=== PATIENT | male | born 1945 | race Caucasian/White ===

== ENCOUNTER → 2016-10-10 | Outpatient (REF) ==
[~2016-10-10] MED LIST: ASPI325T6 PO; ASPIRIN E.C. 8181 MG PO; ATIVAN 0.50.5 MG/TAB PO; ATIVAN 1MG T1 MG/TAB PO; IMDUR 30MG30 MG/TAB PO; LIPITOR 10MG10 MG PO; PLAVIX 75MG TAB75 MG PO; PROTONIX 40MG T40 MG PO; XANAX 0.5MG0.5 MG PO; ZANTAC 150MG T150 MG PO; ZOLOFT 100MG100 MG PO
== END ==
LOC: ZLAB.WCH 18:35
DX: Z01.89 Encounter for other specified special examinations (principal)
CPT/HCPCS: G0103

== ENCOUNTER → 2016-10-31 | Outpatient (REF) | LOC: ZLAB.WCH 14:46 | DX: Z01.89 Encounter for other specified special examinations (principal) | CPT/HCPCS: G0103 ==

== ENCOUNTER → 2016-12-04 | Outpatient (CLI) | payer MEDICARE, BC ==
[2016-12-04 18:07] LABS: HEMATOCRIT 37.7 % (42.0-52.0); MEAN CELL VOLUME 96 fl (80.0-100.0); MEAN CORPUSCULAR HEMOGLOBIN 33 pg (27.0-31.0); MEAN CORPUSCULAR HGB CONC 35 g/dl (33.0-37.0); MEAN PLATELET VOLUME 9.5 fl (7.4-10.4); PLATELET COUNT 174 K/mm3 (130-400); RED BLOOD COUNT 3.93 M/mm3 (4.20-5.60); REDCELL DISTRIBUTION WIDTH-CV 13.6 % (11.5-14.5); WHITE BLOOD COUNT 5.6 K/mm3 (4.8-10.8)
[2016-12-04 18:16] LABS: CALCIUM 9.8 mg/dL (8.4-10.2); CREATININE, serum 1.37 mg/dL (0.66-1.25); POTASSIUM 4.4 mmol/L (3.4-5.0)
== END ==
LOC: COL.RAD 17:26
PROVIDERS: Internal Medicine Interventional Cardiology
DX: R06.02 Shortness of breath (principal)

== ENCOUNTER → 2017-11-13 | Outpatient (REF) | LOC: ZLAB.WCH 15:54 | DX: Z01.89 Encounter for other specified special examinations (principal) | CPT/HCPCS: G0103 ==

== ENCOUNTER → 2018-01-17 | Outpatient (CLI) | payer MEDICARE, BC ==
[~2018-01-17] MED LIST changes: +ANORO IH; +LOPRESSOR 225 MG/TAB PO
== END ==
LOC: COL.PUL 07:37
DX: J44.9 Chronic obstructive pulmonary disease, unspecified (principal); Z87.891 Personal history of nicotine dependence

== ENCOUNTER → 2018-01-21 | Outpatient (REF) ==
[~2018-01-21] MED LIST changes: +VENTOLIN0.09 MG IH
== END ==
LOC: COL.CARD 15:02
DX: Z01.818 Encounter for other preprocedural examination (principal)

== ENCOUNTER → 2018-01-21 | Outpatient (CLI) | payer MEDICARE, BC ==
[~2018-01-21] VITALS: Ht 175.3 cm; Wt 92.0 kg
[2018-01-21 13:29] VITALS: BP 163/90; PULSE 66
[2018-01-21 14:45] VITALS: BP 90/63; PULSE 64
[2018-01-21 15:00] VITALS: BP 91/62; PULSE 60
[2018-01-21 15:15] VITALS: BP 112/70; PULSE 59
[2018-01-21 15:30] VITALS: BP 124/75; PULSE 60
== END ==
LOC: COL.RAD 13:10
DX: M48.061 Spinal stenosis, lumbar region without neurogenic claudication (principal); M47.817 Spondylosis without myelopathy or radiculopathy, lumbosacral region; M99.73 Connective tissue and disc stenosis of intervertebral foramina of lumbar region; Z95.1 Presence of aortocoronary bypass graft; Z98.890 Other specified postprocedural states; Z85.528 Personal history of other malignant neoplasm of kidney
CPT/HCPCS: G9654; J2704; J7120

== ENCOUNTER → 2018-11-17 | Outpatient (REF) | LOC: ZLAB.WCH 16:03 | DX: Z01.89 Encounter for other specified special examinations (principal) | CPT/HCPCS: G0103 ==

== ENCOUNTER 2019-10-06 14:41 | Inpatient (IN) | payer MEDICARE, BC ==
[~2019-10-06] VITALS: Ht 175.3 cm; Wt 84.5 kg
[~2019-10-06 14:41] MED LIST changes: -LOPRESSOR 225 MG/TAB PO; +TOPROL XL 25MG25 MG PO
[2020-01-18] VITALS (9 sets, daily range): BP systolic 120–159; BP diastolic 64–84; PULSE 65–78; TEMP 97.4–98.4
[2020-01-18] MEDS ORDERED: NATURAL VITAM1000 MG PO (00:52)
[2020-01-18] MEDS ORDERED: COLACE 100100 MG/CAP PO (00:53)
[2020-01-18] MEDS ORDERED: PEPCID40 MG PO (00:54)
[2020-01-18] MEDS ORDERED: ALBUTEROL SULFAT3 M3 IH (00:56)
[2020-01-18] MEDS ORDERED: IRON TABLETS325 MG PO (00:57)
--- NOTE | 2020-01-18 05:45 | NUR ---
ARRIVED PER W/C FOR SURGERY THIS AM. LAST MEAL 1800. TOOK AM MEDS AT 0400.
[2020-01-18] MEDS ORDERED: FOLIC ACID 11 MG/TA1 PO (06:13)
[2020-01-18 06:58] LABS: HEMATOCRIT 39.7 % (42.0-52.0); HEMOGLOBIN 13.3 g/dl (13.5-18.0); MEAN CELL VOLUME 97 fl (80.0-100.0); MEAN CORPUSCULAR HEMOGLOBIN 32 pg (27.0-31.0); MEAN CORPUSCULAR HGB CONC 34 g/dl (33.0-37.0); MEAN PLATELET VOLUME 9.6 fl (7.4-10.4); PLATELET COUNT 185 K/mm3 (130-400); RED BLOOD COUNT 4.11 M/mm3 (4.20-5.60); REDCELL DISTRIBUTION WIDTH-CV 12.4 % (11.5-14.5)
[2020-01-18 07:36] LABS: CALCIUM 9.7 mg/dL (8.4-10.2); CREATININE, serum 1.36 (0.66-1.25); POTASSIUM 4.3 mmol/L (3.4-5.0)
--- NOTE | 2020-01-18 09:00 | NUR ---
AT BEDSIDE EXPLAINING OR DELAY. PATIENT ALLOWED CLEARS TILL NOON PER . PATIENT AND IN ROOM.
[2020-01-18] MEDS ORDERED: TOPROL XL 25MG25 MG PO (09:58)
--- NOTE | 2020-01-18 13:45 | NUR ---
SW met with the patient to discuss discharge plan. The patient lives in [place] with his , Jermaine ([id number]#[phone]). He reports needing some assistance with washing his back when bathing and has a walker and cane. He states that his helps him with bathing. The patient's PCP is Dr. John Barton and he receives his medications at [facility]. He reports no difficulties obtaining his meds. The patient's advanced directives are in EMR. His DPOA-HC is his . The patient plans to return home with his upon discharge. He is to have total hip surgery later today. SW to continue to follow.
--- NOTE | 2020-01-18 20:45 | NUR ---
At time of assessment, patient is awake in bed. He is alert and oriented and is not currently feeling pain. His right hip is not red or edematous and the dressing is CDI. Heart sounds are normal/regular, lungs are clear. Abdomen is distended and firm but patient states he had bowel movement this afternoon. He is on post-op vitals and fluids at 100 at this time. Will continue to monitor.
[2020-01-19 04:57] VITALS: BP 99/62; PULSE 65; TEMP 98.1
--- NOTE | 2020-01-19 07:04 | NUR ---
Sitting up in bed with eyes open. Denies pain at this time. Is looking forward to working with PT at this time. Denies further needs presently.
[2020-01-19 07:31] VITALS: BP 109/68; PULSE 69; TEMP 97.7
--- NOTE | 2020-01-19 08:20 | NUR ---
Rating pain 6-7/10 in right hip and requests pain medication. Roxicodone administered as prescribed.
[2020-01-19 11:19] VITALS: BP 122/66; PULSE 72; TEMP 97.9
--- NOTE | 2020-01-19 11:52 | NUR ---
Sitting up in chair with eyes open. Rating pain 8/10 in right hip and would like pain medication. Administered [place] as prescribed. Patient denies further needs at this time.
--- NOTE | 2020-01-19 13:06 | NUR ---
Sitting up in chair with eyes closed. Opens eyes when start talking. Patient's is in room at this time. Patient rating pain 1/10. Denies further needs.
--- NOTE | 2020-01-19 14:43 | NUR ---
Patient says his stomach does not feel well. Zofran administered as prescribed. Patient says that he keeps falling asleep. Asked patient if he would like to put his oxygen back on beings he is tired and patient agrees. Oxygen reapplied at 3L/NC. Patient denies further needs.
[2020-01-19 14:48] VITALS: BP 95/63; PULSE 79; TEMP 98.1
[2020-01-19 15:30] VITALS: BP 112/65; PULSE 79; TEMP 97.5
--- NOTE | 2020-01-19 15:51 | NUR ---
John, RN, speaks with the patient as patient requested to speak with a nurse. John explains that patient continued to say that he did not feel well, felt a little dizzy, hot, and sweaty. John obtained vital signs and explained they were all in normal limits. John asked the patient if he was a regular alcohol user and the patient says that he drinks about 10 ounces of whiskey per night. John administers Ativan at this time as patient also has history of anxiety. Patient denies further needs.
--- NOTE | 2020-01-19 16:32 | NUR ---
Patient lying in bed with eyes closed. Respirations even and unlabored. No signs or symptoms of discomfort noted at this time.
--- NOTE | 2020-01-19 17:30 | NUR ---
Patient explains that he is feeling better. Patient says that he has history of anxiety and this is similar to past episodes that he has had. Patient denies any more nausea. Denies further needs at this time.
--- NOTE | 2020-01-19 18:06 | NUR ---
Rating pain in right hip 5/10 and requests pain medication. Administered Tramadol as prescribed. Patient denies further needs at this time.
[2020-01-19 19:30] VITALS: BP 123/69; PULSE 79; TEMP 98
--- NOTE | 2020-01-19 21:45 | NUR ---
Pt. sitting up in bed at this time. Pt. is A&OX3, assessment complete. INT to lt. hand patent. Pt. reports pain at an 8 on pain scale at this time. Gave pain meds. Dressing to rt. hip CDI. Pt. assisted to bathroom with 1 assist and then to chair. Pt. repositioned in chair for comfort. Pt. denies further needs, call light within reach.
[2020-01-20] VITALS: BP 99/53; PULSE 91; TEMP 98.1
[2020-01-20 04:00] VITALS: BP 129/58; PULSE 85; TEMP 98.4
[2020-01-20] MEDS ORDERED: NORCO 325 MG-7.1 TAB PO (06:37)
[2020-01-20] MEDS ORDERED: ROXICODONE 55 MG/TAB PO (06:38)
--- NOTE | 2020-01-20 07:21 | NUR ---
Sitting up in bed with eyes open. Denies pain at this time. Aquacell to right hip CDI. Patient denies further needs at this time.
--- NOTE | 2020-01-20 08:32 | NUR ---
Assisted patient into recliner chair. Patient confirms that he already has a prescription for Xarelto at home. Discussed with the patient that we will try to get him discharged this afternoon. Patient verbalizes understanding and denies further needs at this time.
[2020-01-20 09:10] VITALS: BP 104/65; PULSE 84; TEMP 97.8
--- NOTE | 2020-01-20 10:07 | NUR ---
Sitting in recliner with eyes closed. Opens eyes when enter room. Denies pain at this time. Voices no further needs at this time.
--- NOTE | 2020-01-20 11:18 | NUR ---
Sitting up in chair with eyes closed. Respirations even and unlabored. No signs or symptoms of discomfort noted at this time.
--- NOTE | 2020-01-20 11:53 | NUR ---
First visit from the minister assistant. No needs right now.
--- NOTE | 2020-01-20 12:30 | NUR ---
Discharge instructions reviewed with patient and his . Questions answered. Patient signs discharge paperwork. Discharge packet provided to the patient. Explain that PT will come work with him one more time and once they are done we will take him out to his POV via wheel chair. Patient and verbalize understanding and denies further needs.
--- NOTE | 2020-01-20 14:32 | NUR ---
Patient completed PT and ready for discharge. This nurse assists the patient out to POV via wheelchair. Patient and have all personal belongings. No further questions or concerns.
== END 2020-01-20 14:32 | disposition home or self-care (01) | DRG 470 ==
LOC: JCC 11-11 07:30
PROVIDERS: Nurse Anesthetist, Certified Registered; ADMIT Orthopaedic Surgery
PROC: 0SR90JA Replacement of Right Hip Joint with Synthetic Substitute, Uncemented, Open Approach (ICD-10-PCS; principal; 2020-01-18 07:30)
DX: M16.11 Unilateral primary osteoarthritis, right hip (principal)
CPT/HCPCS: A9284; C1776; J0690; J1100; J1885; J2250; J2270; J2370; J2405; J2704; J2795; J3010; J7042; J7120

== ENCOUNTER → 2020-01-07 | Outpatient (CLI) | payer MEDICARE, BC ==
[~2020-01-07] MED LIST changes: +LOPRESSOR 225 MG/TAB PO; -TOPROL XL 25MG25 MG PO
== END ==
LOC: COL.LAB 14:28
DX: Z01.812 Encounter for preprocedural laboratory examination (principal)

== ENCOUNTER → 2021-07-10 | Outpatient (CLI) | payer MEDICARE, BC ==
[~2021-07-10] MED LIST changes: +ALBUTEROL SULFAT3 M3 IH; +COLACE 100100 MG/CAP PO; +FOLIC ACID 11 MG/TA1 PO; +IRON TABLETS325 MG PO; -LOPRESSOR 225 MG/TAB PO; +NATURAL VITAM1000 MG PO; +NORCO 325 MG-7.1 TAB PO; +PEPCID40 MG PO; +ROXICODONE 55 MG/TAB PO; +TOPROL XL 25MG25 MG PO
== END ==
LOC: COL.RAD 13:08
DX: Z12.2 Encounter for screening for malignant neoplasm of respiratory organs (principal); Z87.891 Personal history of nicotine dependence